=== PATIENT | male | born 2000 | race Caucasian/White ===

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

== ENCOUNTER 2019-10-06 14:16 | Emergency (ER) | payer MEDICAID, OTHER ==
[~2019-10-06] VITALS: Ht 172.7 cm; Wt 75.0 kg
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
[2019-10-06] MEDS ORDERED: HYDROcodone/acetaminophen 5mg/325mg tablet PO ONE (15:05)
--- NOTE | 2019-10-06 15:24 | NUR ---
patient back to bed B.
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
[2019-10-06] MEDS ORDERED: LORazepam 0.5 MG tablet PO STA (16:33)
[2019-10-06] MEDS ORDERED: LORazepam 2 mg/ml vial IV STA (16:42)
--- NOTE | 2019-10-06 17:05 | NUR ---
EMS and Luis Angel NAHT at bedside.Called Sbar to Jeyson BERMUDEZ at [facility].
--- NOTE | 2019-10-06 17:07 | NUR ---
called for trauma level 3.
--- NOTE | 2019-10-06 17:20 | NUR ---
Patient refused to be transferred to [facility].Luis Angel Lindo talking to [facility].
--- NOTE | 2019-10-06 17:21 | NUR ---
AMA form signed.
[2019-10-06 17:35] VITALS: BP 139/88
== END 2019-10-06 17:39 | disposition left against medical advice (07) ==
LOC: ER 14:17
DX: S02.32XA Fracture of orbital floor, left side, initial encounter for closed fracture (principal); F41.9 Anxiety disorder, unspecified; F12.90 Cannabis use, unspecified, uncomplicated; Y93.9 Activity, unspecified; Y92.9 Unspecified place or not applicable; Y99.9 Unspecified external cause status; S02.69XA Fracture of mandible of other specified site, initial encounter for closed fracture; W51.XXXA Accidental striking against or bumped into by another person, initial encounter; Y04.0XXA Assault by unarmed brawl or fight, initial encounter; Z72.89 Other problems related to lifestyle
CPT/HCPCS: 70450; 70486; 71045; 99284; 99285

== ENCOUNTER 2019-10-28 00:08 | Emergency (ER) | payer OTHER ==
[~2019-10-28] VITALS: Ht 172.7 cm; Wt 72.7 kg
[2019-10-28] MEDS ORDERED: diphenhydrAMINE 50 mg/ml inj IM ONE (00:30)
[2019-10-28] MEDS ORDERED: LORazepam 2 mg/ml vial IM ONE (00:30)
[2019-10-28] MEDS ORDERED: haloperidol lactate 5mg/ml inj IM ONE (00:30)
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
[2019-10-28 00:55] LABS: BASOPHILS # (AUTO) 0.1 X10'3 (0-0.2); BASOPHILS % (AUTO) 1.2 % (0-1); EOSINOPHILS # (AUTO) 0.3 X10'3 (0-0.9); EOSINOPHILS % (AUTO) 3.3 % (0-6); HEMATOCRIT 50.6 % (42.0-52.0); HEMOGLOBIN 17.4 g/dl (14.0-17.9); LYMPHOCYTES % (AUTO) 38.3 % (21-51); MEAN CORPUSCULAR HEMOGLOBIN 30.8 PG (27.0-31.0); MEAN CORPUSCULAR HGB CONC 34.3 g/dL (33.0-36.5); MEAN CORPUSCULAR VOLUME 89.6 FL (78-98); MEAN PLATELET VOLUME 8.8 FL (7.4-10.4); MONOCYTES # (AUTO) 0.7 X10'3 (0-0.9); MONOCYTES % (AUTO) 9.2 % (2-12); NEUTROPHILS # (AUTO) 3.7 X10'3 (1.8-7.7); PLATELET COUNT 258 X10'3 (140-440); RED BLOOD COUNT 5.65 X10'6 (4.70-6.10); RED CELL DISTRIBUTION WIDTH 14.7 % (11.5-14.5); WHITE BLOOD COUNT 7.8 X10'3 (4.5-11.0)
[2019-10-28 01:00] LABS: CLARITY,URINE CLEAR (Clear); COLOR,URINE STRAW (Yellow); GLUCOSE, URINE NEGATIVE (Neg); KETONES,URINE NEGATIVE (Neg); LEUKOCYTE ESTERASE ,URINE NEGATIVE (Neg); NITRITES, URINE NEGATIVE (Neg); OCCULT BLOOD,URINE TRACE-INTACT (Neg); PROTEIN,URINE NEGATIVE (Neg); UROBILINOGEN,URINE 0.2 E.U/dL (0.2-1.0)
[2019-10-28 01:01] LABS: UA COLLECTION TYPE VOIDED
--- NOTE | 2019-10-28 01:03 | NUR ---
pt now banging his head on siderails seizure pads placed.
[2019-10-28 01:12] LABS: BACTERIA,URINE NONE SEEN /HPF (Neg); MUCUS STRANDS NONE SEEN /LPF (Neg); RBC,URINE 0-2 /HPF (0-2); SQUAMOUS EPITHELIAL CELL,UR NONE SEEN /LPF (FEW); WBC,URINE 0-4 /HPF (0-4)
[2019-10-28 01:15] LABS: ALANINE AMINOTRANSFERASE 26 U/L (12-78); ALBUMIN 4.2 G/DL (3.4-5.0); ALKALINE PHOSPHATASE 99 IU/L (20-180); ANION GAP 11 (8-16); ASPARTATE AMINO TRANSFERASE 35 U/L (10-37); BILIRUBIN,TOTAL 0.2 MG/DL (0.1-1.0); BLOOD UREA NITROGEN 5 MG/DL (7-18); BUN/CREATININE RATIO 6.3 (5.4-32.0); CALCIUM 8.3 MG/DL (8.5-10.1); CHLORIDE 110 MMOL/L (99-107); CREATININE 0.79 MG/DL (0.60-1.10); GLUCOSE 96 MG/DL (70-104); POTASSIUM 3.6 MMOL/L (3.5-5.1); SODIUM 149 MMOL/L (135-145); TOTAL CARBON DIOXIDE 27.6 MMOL/L (24-32); TOTAL PROTEIN 8.4 G/DL (6.4-8.2); URINE AMPHETAMINE SCREEN NEGATIVE (Neg); URINE BARBITUATE SCREEN NEGATIVE (Neg); URINE BENZODIAZEPINES SCREEN NEGATIVE (Neg); URINE CANNABINOID SCREEN POSITIVE (Neg); URINE COCAINE SCREEN NEGATIVE (Neg); URINE METHADONE SCREEN NEGATIVE (Neg); URINE OPIATE SCREEN NEGATIVE (Neg); URINE PHENCYCLIDINE SCREEN NEGATIVE (Neg); eGFR > 90 ML/MIN
[2019-10-28 01:45] LABS: ETHANOL 0.409 GM/DL (0.0-0.010)
--- NOTE | 2019-10-28 02:10 | NUR ---
Pt sleeping in bed at this time. Taken to CT at 0155 which was completed successfully. Left leg restraint removed due to decrease in combative behavior.
--- NOTE | 2019-10-28 02:21 | NUR ---
Released R leg from restraint due to lack of combative behavior at this time. Pt is sleeping at the moment, resting without signs of pain or discomfort.
--- NOTE | 2019-10-28 03:23 | NUR ---
Pt is sleeping in the room with no signs of discomfort or distress. All four wrist restraints are removed at this time.
--- NOTE | 2019-10-28 05:16 | NUR ---
Pt is in the bed, sleeping at this time. He does not show sign of distress or discomfort.
--- NOTE | 2019-10-28 06:58 | NUR ---
PACKET FAXED TO [facility].
--- NOTE | 2019-10-28 07:00 | NUR ---
PT MOVED FROM ER 15 TO BED 21. PT TRANSFERED FROM [facility] TO BED
--- NOTE | 2019-10-28 08:13 | NUR ---
PT RESTING ON RIGHT SIDE RR EQUAL AND UNLABORED
--- NOTE | 2019-10-28 09:10 | NUR ---
PT CONTINUES TO SLEEP, NO S/S OF DISTRESS, BREAKFAST WAITING AT BEDSIDE.
--- NOTE | 2019-10-28 09:28 | NUR ---
PT RESTING ON RIGHT SIDE RR EQUAL AND UNLABORED. PT IN SITE OF NSG STATION
--- NOTE | 2019-10-28 12:05 | NUR ---
PT AWAKE STATING "IM READY TO GO" PT EDUCATED ON 9184. PT BEGAN TO GET AGITATED STATING I'M GOING TO LEAVE, THIS IS A HALFWAY YOU CANT KEEP ME. SECURITY AT . DR BIANCHI NOTIFIED AND INTO SEE PT. AWAITING [facility] THEY WILL BE HERE IN THE NEXT HR. PT AGREES TO WAIT TO SPEAK TO THEM
--- NOTE | 2019-10-28 12:08 | NUR ---
PT RIPPED OFF ELOPEMENT BAND AND WRIST BAND, WILL REPLACE THEM.
--- NOTE | 2019-10-28 12:39 | NUR ---
PT RESTING ON LEFT SIDE EYES CLOSED RR EQUAL AND UNLABORED
--- NOTE | 2019-10-28 13:07 | NUR ---
BREAK NOTE:paient asleep,right damon position,respirations regular.
--- NOTE | 2019-10-28 13:16 | NUR ---
Lunch tray at bedside,patient lying on left side asleep.
[2019-10-28] MEDS ORDERED: ESCITALOPRAM OXALATE 5 MG TABLET PO SCH (13:54)
--- NOTE | 2019-10-28 14:23 | NUR ---
PT BLOOD ETOH 0.112. PER ELENI WITH [facility] PT IS NOT ABLE TO BE EVALUATEED AT THIS TIME THEY WILL BE BACK TO EVAL LATER TODAY. PT RESTING WITH EYES CLOSED. RR EQUAL AND ULABORED
[2019-10-28 16:55] VITALS: BP 127/74
--- NOTE | 2019-10-28 17:30 | NUR ---
PT HAS BEEN DISCHARGED. WAITING FOR HIS GRANDMOTHER TO PICK HIM UP.
== END 2019-10-28 18:10 ==
LOC: ER 00:08
DX: S06.0X0A Concussion without loss of consciousness, initial encounter (principal); S00.83XA Contusion of other part of head, initial encounter; H11.32 Conjunctival hemorrhage, left eye; F12.10 Cannabis abuse, uncomplicated; F10.920 Alcohol use, unspecified with intoxication, uncomplicated; F41.9 Anxiety disorder, unspecified; Z79.899 Other long term (current) drug therapy; X83.8XXA Intentional self-harm by other specified means, initial encounter; Y93.89 Activity, other specified; Y92.89 Other specified places as the place of occurrence of the external cause; Y99.8 Other external cause status; Y90.0 Blood alcohol level of less than 20 mg/100 ml
CPT/HCPCS: 36415; 70450; 70486; 80053; 80305; 80320; 81001; 84443; 85025; 96372; 99285; J1200; J1630; J2060